=== PATIENT | male | born 1970 | race Caucasian/White ===

== ENCOUNTER 2018-08-02 12:25 | Inpatient (IN) | payer OTHER ==
[~2018-08-02] VITALS: Ht 182.9 cm; Wt 127.9 kg
[2018-08-02 13:28] VITALS: BP 142/65
[2018-08-02] MEDS ORDERED: VITAMIN B-12500 MCG PO (15:50)
[2018-08-02] MEDS ORDERED: SPIRONOLACTONE100 M3 PO (15:51)
[2018-08-02] MEDS ORDERED: CARAFATE 1 GM TA1 G1 PO (15:51)
[2018-08-02] MEDS ORDERED: TRAZODONE HCL100 MG PO (15:52)
[2018-08-02] MEDS ORDERED: LASIX 80 MG TAB80 MG PO (15:52)
[2018-08-02] MEDS ORDERED: AMARYL4 MG PO (15:53)
[2018-08-02] MEDS ORDERED: GLIPIZIDE 10 MG10 MG PO (15:53)
[2018-08-02] MEDS ORDERED: ZANAFLEX4 MG PO (15:53)
[2018-08-02] MEDS ORDERED: XIFAXAN550 MG PO (16:05)
[2018-08-02] MEDS ORDERED: HYDROXYZINE HCL50 MG PO (16:06)
[2018-08-02] MEDS ORDERED: OMEPRAZOLE 20 M20 M1 PO (16:07)
--- NOTE | 2018-08-02 16:24 | NUR ---
ADM PT IS A DIRECT ADMIT FROM [facility], PT ORIENTED TO ROOM, WITH ACTIVE NAUSEA AND VOMITING OF DARK RED VOMITUS. PT HAVING AT THIS MOMENT. ADM OORDERS CARRIED OUT. WILL CONTINUE TO MONITOR.
[2018-08-02] MEDS ORDERED: ONDANSETRON HCL4 M2 PO (17:47)
[2018-08-02] MEDS ORDERED: PHENERGAN 25 MG25 M1 PO (17:47)
[2018-08-02] MEDS ORDERED: KLOR-CON 1010 MEQ PO (17:49)
[2018-08-02] MEDS ORDERED: PROAIR HFA8.5 GM INH (17:49)
[2018-08-02] MEDS ORDERED: FENTANYL PATCH75 MCG TRANSDERM (17:49)
[2018-08-02] MEDS ORDERED: MECLIZINE HCL25 MG PO (17:50)
[2018-08-02 19:27] VITALS: BP 120/65
[2018-08-02 21:15] LABS: HEMATOCRIT 31.6 % (42.0-52.0); HEMOGLOBIN 11.1 gm/dL (14.0-18.0); MCH 32.9 pg (26.0-34.0); MCV 93.9 fL (80.0-100.0); RBC 3.37 mil/uL (4.50-6.00); RDW 16.2 % (10.5-14.5); WBC 11.7 thou/uL (4.0-11.0)
[2018-08-02 21:33] LABS: ALBUMIN 2.9 g/dL (3.4-5.0); CALCIUM 7.4 mg/dL (8.5-10.1); CREATININE 1.6 mg/dL (0.7-1.3); DIRECT BILIRUBIN 0.9 mg/dL (<0.1-0.3); MAGNESIUM 1.6 mg/dL (1.8-2.4); POTASSIUM 4.5 mmol/L (3.5-5.1); TOTAL BILIRUBIN 3.3 mg/dL (<0.1-1.0); TOTAL PROTEIN 5.7 g/dL (6.4-8.2)
[2018-08-02 21:44] LABS: INR 1.5; PROTIME 15.5 Seconds (9.3-11.4)
[2018-08-02 22:17] LABS: TSH 1.004 uIU/mL (0.358-3.740)
--- NOTE | 2018-08-02 23:00 | NUR ---
Pt. rested quietly up until needing to go to the bathroom and get ready for pelvis and abdominal ct. Transfered to toilet with assistance of one and he had a large dark loose stool. C/o abdominal cramping and rated it a 5 out of 10. Some relief after having stool. Called and spoke to Gracie IBRAHIM with creatinine results. New orders to hold CT and give a 500 ml NS bolus.
[2018-08-03 03:48] VITALS: BP 101/51
[2018-08-03 04:04] LABS: HEMOGLOBIN 9.8 gm/dL (14.0-18.0); MCH 33.5 pg (26.0-34.0)
[2018-08-03 04:06] LABS: HEMATOCRIT 27.3 % (42.0-52.0); MCHC 35.9 g/dL (28.0-37.0); MCV 93.4 fL (80.0-100.0); RBC 2.92 mil/uL (4.50-6.00); RDW 16.3 % (10.5-14.5); WBC 6.9 thou/uL (4.0-11.0)
[2018-08-03 04:16] LABS: CALCIUM 7.2 mg/dL (8.5-10.1); CREATININE 1.7 mg/dL (0.7-1.3); MAGNESIUM 1.6 mg/dL (1.8-2.4); POTASSIUM 3.8 mmol/L (3.5-5.1)
--- NOTE | 2018-08-03 06:00 | NUR ---
4 DARK LIQUID STOOLS SINCE MIDNIGHT, APPRECIATES IV PAIN MED. NAUSEA PILL PER REQUEST AT TIME OF HIS 0600 POTASSIUM PILL. VERIFIED DOSE OF LASIX AND ALDACTONE WITH PATIENT'S MOTHER. MOISTURE BARRIER APPLIED AFTER LAST 2 BMs
[2018-08-03 08:19] VITALS: BP 116/60
--- NOTE | 2018-08-03 12:05 | NUR ---
cm tried x 2 to visit wit pt this am before los, but pt was resting with eyes close. cm visited after los, discussed during los possible a day or so (few days). intro to cm, dcp, transition of care, home health and post acute. pt is able to make his needs know, a & o x 3 with some forgetfulness. pt mom, ex sig other and daughter at bedside. " ok to visit with them here, they can answer better than i can"/jignesh. " lives with his mom, need help when do not feel good. been disable for while, no medical equip. no loner drives. mom manages my medication. there is too many keep up with, use pill box. poor vision. able to dress and care for self when feeling ok. dr long from [facility], left and know trying to find new dr. no rehab in past. 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 might smoke little pot here and there"/jignesh and mom arley. will cont following as needed for dc needs.
[2018-08-03 15:40] VITALS: BP 105/51
--- NOTE | 2018-08-03 15:51 | NUR ---
TOWARDS POC PT A/O X4, VSS, AFEBRILE, PAIN MANAGED BY MEDS. NO EPISODES OF VOMITING, BM X4 WITH LOOSE CONSISTENCY DARK ADDISON IN COLOR. REMAINED ON CLRS, TOLERATING WELL. NO CONCERNS VOICED, PARENTS AT BEDSIDE. WILL CONTINUE TO MONITOR.
[2018-08-03 19:19] VITALS: BP 133/110
--- NOTE | 2018-08-04 04:44 | NUR ---
PT UP MOST OF THE NIGHT GOING TO THE BATHROOM PT ONLY VOIDING 100ML AT A TIME FENTANLY AND TRAMADOL GIVEN FOR PAIN PT USED CALL LIGHT EFFECTIVELY TO GET HELP GOING TO THE BATHROOM.
[2018-08-04 05:27] VITALS: BP 92/51
[2018-08-04 06:18] LABS: HEMOGLOBIN 9.1 gm/dL (14.0-18.0); RBC 2.78 mil/uL (4.50-6.00); WBC 4.2 thou/uL (4.0-11.0)
[2018-08-04 06:21] LABS: HEMATOCRIT 25.4 % (42.0-52.0); MCH 32.6 pg (26.0-34.0); MCHC 35.8 g/dL (28.0-37.0); MCV 91.2 fL (80.0-100.0); RDW 15.6 % (10.5-14.5)
[2018-08-04 06:35] LABS: CALCIUM 7.1 mg/dL (8.5-10.1); CREATININE 1.2 mg/dL (0.7-1.3); MAGNESIUM 1.6 mg/dL (1.8-2.4); POTASSIUM 3.4 mmol/L (3.5-5.1)
[2018-08-04 07:12] VITALS: BP 91/46
[2018-08-04 15:54] VITALS: BP 108/41
--- NOTE | 2018-08-04 18:11 | NUR ---
PT STABLE THROUGHOUT SHIFT. PT C/O PAIN, GAVE PAIN MEDS. PT AMBULATED AROUND UNIT. PT RESTING COMFORTABLY, FAMILY AT BEDSIDE.
[2018-08-04 19:28] VITALS: BP 90/43
--- NOTE | 2018-08-05 04:17 | NUR ---
Assumed care at 1845. Pt stable throughout the shift. Has been having trouble going to sleep. Tried melatonin and benadryl but nothing seemed to have helped with sleep. Father and mother are at bedsides. No identified needs at the moment. Will continue to monitor.
[2018-08-05 05:56] LABS: HEMOGLOBIN 8.6 gm/dL (14.0-18.0); WBC 3.2 thou/uL (4.0-11.0)
[2018-08-05 05:58] LABS: HEMATOCRIT 23.7 % (42.0-52.0); MCH 33.2 pg (26.0-34.0); MCHC 36.3 g/dL (28.0-37.0); MCV 91.5 fL (80.0-100.0); RBC 2.59 mil/uL (4.50-6.00); RDW 15.6 % (10.5-14.5)
[2018-08-05 06:11] LABS: INR 1.4; PROTIME 14.8 Seconds (9.3-11.4)
[2018-08-05 06:14] LABS: ALBUMIN 2.5 g/dL (3.4-5.0); CALCIUM 6.9 mg/dL (8.5-10.1); POTASSIUM 3.4 mmol/L (3.5-5.1); TOTAL BILIRUBIN 1.9 mg/dL (<0.1-1.0); TOTAL PROTEIN 5.1 g/dL (6.4-8.2)
[2018-08-05 07:28] VITALS: BP 92/51
--- NOTE | 2018-08-05 08:36 | NUR ---
PT A&0X4, UPON FIRST ASSESSMENT PT IN SHOES AND IN CHAIR STATING HE WAS TOLD HE COULD LEAVE THIS WAS AROUND 0700. LET HIM KNOW WE'D GET HIM OUT SOON WE COULD ONCE PHYSICIAN GIVES ORDERS, OFFERED JUICE, COFFEE, WATER TO FAMILY. NOC NURSE STATES PT COULDN'T SLEEP SO WAS MEDICATED SUCH. B/PS RUN LOW PER FAMILY WELL PCI HERE. COMM W/PHYSICIAN RE: THE SAME, ORDERS GIVEN. PT RESTING W/FAMILY AT BEDSIDE. C/O PAIN IN LOWER BACK AND ABDOMEN, ENCOURAGED ALL TO USE CALL LIGHT FOR ANY NEEDS.
--- NOTE | 2018-08-05 10:37 | NUR ---
PT AMB IN HALLWAY BUT WAS TOO WEAK TO CONTINUE, PUSHED IN W/C, HAD A SNACK.
--- NOTE | 2018-08-05 12:34 | NUR ---
PT HAS BEEN ASKING TO LEAVE AMA, ENCOURAGED HIM TO FINISH UP ELECTROLYTES AND SEE WHAT HIS HGB WOULD BE THIS AFTERNOON, HE STATES HIS HOSPITALIZATION IS GETTING IN THE WAY OF HIS DAUGHTER TIME. ENCOURAGED HIM ON BEING WELL AND NOT HAVING A FALL/WEAKNESS WHILE W/DAUGHTER. CALLED DR. MONTE WHO WAS AWARE AND DISCOURAGED HIM AND SAID [facility] FOR GI ALSO AWARE FROM HER CONVERSATION WITH HIM THIS A.M. WILL CALL TO GIVE HER AN FYI. IV REMOVED, TELE REMOVED, FAMILY AT BEDSIDE, VOLUNTEER ON THEIR WAY TO TAKE PT OUT TO FATHER'S VEHICLE AT [facility]. PT AND FAMILY MENTIONED HOW GREAT HIS CARE WAS
--- NOTE | 2018-08-05 16:39 | NUR ---
PT DISCHARGE AMA THIS DAY.
== END 2018-08-05 12:55 | disposition left against medical advice (07) | DRG 432 ==
LOC: 4W 12:25 → ENTRNSPT 08-05 12:37 → EDTRNSPTSTS 08-05 12:38 → 4W 08-05 12:55
PROVIDERS: Internal Medicine; Nurse Practitioner; ADMIT Hospitalist
PROC: 06L38CZ Occlusion of Esophageal Vein with Extraluminal Device, Via Natural or Artificial Opening Endoscopic (ICD-10-PCS; principal; 2018-08-02)
DX: K70.30 Alcoholic cirrhosis of liver without ascites (principal); I85.11 Secondary esophageal varices with bleeding; K76.6 Portal hypertension; K86.1 Other chronic pancreatitis; D62 Acute posthemorrhagic anemia; K92.0 Hematemesis; E83.42 Hypomagnesemia; E66.9 Obesity, unspecified; K72.90 Hepatic failure, unspecified without coma; Z53.21 Procedure and treatment not carried out due to patient leaving prior to being seen by health care provider; R16.1 Splenomegaly, not elsewhere classified; N18.3 Chronic kidney disease, stage 3 (moderate); K31.89 Other diseases of stomach and duodenum; I95.9 Hypotension, unspecified; F10.10 Alcohol abuse, uncomplicated; E80.6 Other disorders of bilirubin metabolism; D69.6 Thrombocytopenia, unspecified; B18.2 Chronic viral hepatitis C; E11.22 Type 2 diabetes mellitus with diabetic chronic kidney disease; I12.9 Hypertensive chronic kidney disease with stage 1 through stage 4 chronic kidney disease, or unspecified chronic kidney disease; Z91.048 Other nonmedicinal substance allergy status; Z68.38 Body mass index [BMI] 38.0-38.9, adult
CPT/HCPCS: 10045; 62110; 62900